=== PATIENT | female | born 1960 | race Caucasian/White ===

== ENCOUNTER 2023-09-15 13:50 | Emergency (ER) | payer MEDICARE ==
[~2023-09-15] VITALS: Ht 162.6 cm; Wt 102.1 kg
[~2023-09-15 13:50] MED LIST: ASPIRIN81 MG PO; ATENOLOL25 MG PO; ATORVASTATIN CA20 MG PO; ELIQUIS5 MG PO; LISINOPRIL-HCT1 EAC1 PO; LISINOPRIL20 MG PO; METFORMIN HCL1000 MG PO; METOPROLOL TAR100 MG PO; SYNTHROID50 MCG PO
[2023-09-15 14:29] LABS: BASOPHILS # (AUTO) 0.1 (0.0-0.1); BASOPHILS % 1.2 % (0.0-1.0); EOSINOPHILS # (AUTO) 0.5 (0.0-0.4); EOSINOPHILS % 6.3 % (0.0-6.0); HEMATOCRIT 37.6 % (34.2-44.1); HEMOGLOBIN 12.7 g/dL (12.0-16.0); LYMPHOCYTES # (AUTO) 2.1 (1.0-3.2); LYMPHOCYTES % 28.3 % (18.0-39.1); MEAN CORPUSCULAR HEMOGLOBIN 29.6 pg (28-32); MEAN CORPUSCULAR HGB CONC 33.8 g/dL (31-35); MEAN CORPUSCULAR VOLUME 87.6 fL (81-99); MONOCYTES # (AUTO) 0.8 (0.2-0.8); MONOCYTES % 10.7 % (4.4-11.3); NEUTROPHILS % 53.2 % (38.7-80.0); PLATELET COUNT 283 x10e3/uL (140-360); RED BLOOD COUNT 4.29 x10e6/uL (3.6-5.1); RED CELL DISTRIBUTION WIDTH 13.9 % (11.7-14.4); WHITE BLOOD COUNT 7.49 x10e3/uL (4.8-10.8)
[2023-09-15 14:41] LABS: INR 1.22; PROTHROMBIN TIME 15.7 seconds (11.9-14.5)
[2023-09-15 14:42] LABS: PARTIAL THROMBOPLASTIN TIME 31.1 seconds (23.8-35.5)
[2023-09-15 14:49] LABS: ALBUMIN 3.9 g/dL (3.5-5.0); ALBUMIN/GLOBULIN RATIO 1.1 (0.8-2.0); ANION GAP 16.6 mmol/L (8-16); BILIRUBIN,TOTAL 1.1 mg/dL (0.2-1.2); CALCIUM 10.1 mg/dL (8.4-10.2); CREATININE, SERUM 1.06 mg/dL (0.57-1.11); MAGNESIUM 1.2 MG/DL (1.3-2.1); POTASSIUM 3.6 mmol/L (3.5-5.1); TOTAL PROTEIN 7.5 g/dL (6.5-8.1)
[2023-09-15] MEDS: SODIUM CHLORIDE 0.9% 500ML 500 ML IV ONE (14:49)
[2023-09-15 14:55] LABS: TROPONIN I 0.004 ng/mL (0-0.300)
[2023-09-15] MEDS: MAGNESIUM SULFATE 2GM/50ML 50 ML IV ONE (15:37)
[2023-09-15 17:13] LABS: TROPONIN I 0.001 ng/mL (0-0.300)
[2023-09-15 17:50] VITALS: O2SAT 96
== END 2023-09-15 17:50 | disposition home or self-care (01) ==
LOC: ER 13:56
DX: R41.82 Altered mental status, unspecified (principal); J90 Pleural effusion, not elsewhere classified; I10 Essential (primary) hypertension; E11.9 Type 2 diabetes mellitus without complications; I48.91 Unspecified atrial fibrillation; E78.5 Hyperlipidemia, unspecified; E03.9 Hypothyroidism, unspecified; G47.33 Obstructive sleep apnea (adult) (pediatric); R94.31 Abnormal electrocardiogram [ECG] [EKG]
CPT/HCPCS: 36415; 70450; 71045; 80053; 82550; 83735; 84484; 85025; 85610; 85730; 93005; 99284; J3475; J7040